=== PATIENT | male | born 1980 | race Two or more races ===

== ENCOUNTER 2020-02-13 18:13 | Emergency (ER) | payer MEDICAID ==
[~2020-02-13] VITALS: Ht 162.6 cm; Wt 79.8 kg
[2020-02-13 18:37] VITALS: BP 128/78
[2020-02-13] MEDS ORDERED: TETANUS-DIPTH-ACEL PERTUSSIS 0.5ML SYR Tdap IM ONE (18:45)
[2020-02-13] MEDS ORDERED: LIDOCAINE 1% HCL (LOCAL ANESTH.) INJ 20ML MDV IJ ONE (18:45)
== END 2020-02-13 19:23 | disposition home or self-care (01) ==
LOC: ER 18:13
DX: S61.215A Laceration without foreign body of left ring finger without damage to nail, initial encounter (principal); J45.909 Unspecified asthma, uncomplicated; Z76.0 Encounter for issue of repeat prescription; W26.0XXA Contact with knife, initial encounter; Y93.89 Activity, other specified; Y92.89 Other specified places as the place of occurrence of the external cause; Y99.8 Other external cause status
CPT/HCPCS: 12001; 90471; 90715; 99283; J2001

== ENCOUNTER 2020-02-26 10:36 | Emergency (ER) | payer MEDICAID ==
[~2020-02-26] VITALS: Ht 165.1 cm; Wt 79.8 kg
[2020-02-26 11:01] VITALS: BP 135/79
== END 2020-02-26 11:17 | disposition home or self-care (01) ==
LOC: ER 10:36
DX: S61.215D Laceration without foreign body of left ring finger without damage to nail, subsequent encounter (principal); X58.XXXD Exposure to other specified factors, subsequent encounter

== ENCOUNTER 2023-09-30 09:24 | Emergency (ER) | payer MEDICAID ==
[~2023-09-30] VITALS: Ht 165.1 cm; Wt 75.4 kg
[2023-09-30] MEDS ORDERED: IBUP1TAB5 PO (14:32)
[2023-09-30 15:13] VITALS: BP 133/90; PULSE 76; RESP 17; O2SAT 97
== END 2023-09-30 15:13 | disposition home or self-care (01) ==
LOC: ER 09:24
DX: R51.9 Headache, unspecified (principal); R42 Dizziness and giddiness; J45.909 Unspecified asthma, uncomplicated